=== PATIENT | female | born 1995 | race Caucasian/White ===

== ENCOUNTER → 2020-04-24 07:27 | Outpatient (CLI) | payer OTHER, SELFPAY ==
[2020-04-24 08:44] LABS: Basophils % 0.7 % (0.1-2.0); Eosinophils # 0.1 K/mm3 (0.0-0.4); Eosinophils % 2.2 % (0.1-12.0); Hematocrit 40.2 % (37.0-47.0); Hemoglobin 12.2 g/dL (12.2-16.2); Lymphocytes # 1.8 K/mm3 (0.7-4.5); Lymphocytes % 30.7 % (10-50); Mean Corpuscular HGB Conc 30.3 g/dL (31.8-35.4); Mean Corpuscular Hemoglobin 26.4 pg (27.0-31.2); Mean Corpuscular Volume 87.2 fl (81-99); Mean Platelet Volume 7.1 fl (7.4-10.4); Monocytes # 0.3 K/mm3 (0.1-1.0); Monocytes % 4.4 % (1.7-9.3); Neutrophils # 3.7 K/mm3 (1.8-7.8); Platelet Count 301 K/mm3 (142-424); Red Blood Count 4.61 M/mm3 (4.20-5.40); Red Cell Distribution Width 13.9 % (11.5-17.5); White Blood Count 5.9 K/mm3 (4.8-10.8)
[2020-04-24 09:09] LABS: Chloride 103 mmol/L (98-107); Sodium 138 mmol/L (136-145)
[2020-04-24 09:10] LABS: Potassium 4.3 mmoL/L (3.5-5.1)
[2020-04-24 09:12] LABS: Alanine Aminotransferase 14 U/L (12-78); Albumin Level 4.4 g/dl (3.5-5.0); Albumin/Globulin Ratio 1.3 (1.1-1.8); Alkaline Phosphatase 31 U/L (38-126); Anion Gap 12.3 mEq/L (5-15); Aspartate Amino Transferase 26 U/L (14-36); Bilirubin,Total 1.3 mg/dl (0.2-1.3); Blood Urea Nitrogen 16 mg/dl (7-17); Calcium 9.2 mg/dl (8.4-10.2); Carbon Dioxide 27 mmol/L (22.0-30.0); Cholesterol 149 mg/dl (140-200); Estimated Glomerular Filt Rate 76 ml/min (>60); GFR (African American) 92 ML/MIN (>60); Globulin 3.4 g/dL (1.3-3.2); Glucose 94 mg/dl (74-100); Total Protein,Serum 7.8 g/dl (6.3-8.2); Triglycerides 43 mg/dl (30-150); VLDL Cholesterol 9 mg/dL (0-40)
[2020-04-24 09:13] LABS: Chol/HDL Ratio 1.9 (1-3.5); HDL Cholesterol 78 mg/dl (40-60)
[2020-04-24 09:24] LABS: Direct LDL Cholesterol 57.92 mg/dL (100-129)
[2020-04-24 09:28] LABS: Triiodothryronine (T3) Uptake 34 % (23.5-40.5)
[2020-04-24 09:29] LABS: Free Thyroxine Index 2.9 ug/dL (5.93-13.13); T4 (Thyroxine) 8.6 ug/dl (5.53-11.0)
[2020-04-24 09:43] LABS: Thyroid Stimulating Hormone 3.29 uIU/mL (0.465-4.68)
[2020-04-24 18:36] LABS: Vitamin B12 649 pg/mL (239-931)
== END ==
PROVIDERS: Visit Provider Internal Medicine Adolescent Medicine
DX: Z00.00 Encounter for general adult medical examination without abnormal findings (principal); E03.9 Hypothyroidism, unspecified; K59.01 Slow transit constipation
CPT/HCPCS: 36415; 80053; 80061; 82607; 84436; 84443; 84479; 85025